=== PATIENT | female | born 1985 | race Caucasian/White ===

== ENCOUNTER 2016-10-22 18:49 | Emergency (ER) | payer BC, OTHER ==
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
[2016-10-22 19:25] VITALS: BP 153/91; PULSE 80; RESP 16
--- NOTE | 2016-10-22 19:33 | XR ---
EXAMINATION TYPE: XR cervical spine comp DATE OF EXAM: 10/22/2016 7:26 PM CLINICAL HISTORY: pain COMPARISON: NONE TECHNIQUE: Frontal, lateral, oblique, swimmers, and open mouth view of the cervical spine are obtaine d. FINDINGS: The cervical spine is visualized in its entirety from C1 thru the top of T1 level. It is s atisfactory in alignment without evidence of acute fracture or dislocation. The pre-vertebral soft t issue appears within normal limits. Disc spaces are well preserved. The C1-C2 articulation is unremar kable on the open mouth view. The oblique images are within normal limits. IMPRESSION: No acute fracture or dislocation is seen in the cervical spine.ICD 10 NO FRACTURE, INITI AL EVALUATION
== END 2016-10-22 19:49 | disposition home or self-care (01) ==
LOC: EC 18:49
DX: S16.1XXA Strain of muscle, fascia and tendon at neck level, initial encounter (principal); M25.511 Pain in right shoulder; R03.0 Elevated blood-pressure reading, without diagnosis of hypertension; V43.92XA Unspecified car occupant injured in collision with other type car in traffic accident, initial encounter; Y92.410 Unspecified street and highway as the place of occurrence of the external cause
CPT/HCPCS: 72050; 99284

== ENCOUNTER 2021-08-06 08:54 | Inpatient (IN) | payer BC ==
[2021-08-12] MEDS ORDERED: OXYTOCIN 10 UNIT/ML 1 ML VIAL IM PRN (06:01)
[2021-08-12] MEDS ORDERED: LIDOCAINE 0.5% (PF) 5 MG/ML (50 ML SDV) SQ PRN (06:01)
[2021-08-12] MEDS ORDERED: CARBOPROST TROMETHAMINE 250 MCG/ML 1 ML AMP IM PRN (06:01)
[2021-08-12] MEDS ORDERED: METHYLERGONOVINE 0.2 MG/ML 1 ML AMP IM PRN (06:01)
[2021-08-12] MEDS ORDERED: TERBUTALINE 1 MG/ML VIAL SQ PRN (06:01)
[2021-08-12 06:09] LABS: Basophils % (A) 0 %; Eosinophils # (A) 0.2 k/uL (0-0.7); Eosinophils % (A) 2 %; HCT 38.4 % (34.0-46.0); HGB 12.7 gm/dL (11.4-16.0); Lymphocytes # (A) 1.7 k/uL (1.0-4.8); Lymphocytes % (A) 12 %; MCH 29.9 pg (25.0-35.0); MCV 90.4 fL (80.0-100.0); Mean Platelet Volume 8.3; Monocytes # (A) 0.7 k/uL (0-1.0); Monocytes % (A) 5 %; Neutrophils # (A) 10.5 k/uL (1.3-7.7); Neutrophils % (A) 79 %; Platelet Count 255 k/uL (150-450); RBC 4.25 m/uL (3.80-5.40); RDW 13.4 % (11.5-15.5); WBC 13.4 k/uL (3.8-10.6)
[2021-08-12] MEDS ORDERED: OXYTOCIN 30 UNITS/500 ML NS 30 UNIT in SALINE 1 500ML.BAG IV SCH ×2 (06:15→15:30)
[2021-08-12] MEDS: LACTATED RINGERS 1,000 ML IV SCH ×5 (06:43→20:00)
--- NOTE | 2021-08-12 08:09 | P.HPOB ---
History of Present Illness H&P Date: 08/12/21 Chief Complaint: spontaneous rupture at 40-6/7 weeks' this is a 36 year old 1 para 0 woman with an estimated due date of 08/06/2021 based on LMP consistent with first trimester ultrasound. She presents with spontaneous rupture of membranes at approximately 3 AM on 10/12/2020 at 40-6/7 weeks' gestation. She was a scheduled postdates induction for later in the day. Her has been on unremarkable. Recently and specifically she denies vaginal bleeding severe abdominal pain, headaches, visual changes, lower extremity swelling. She reports good movement. Upon initial evaluation in labor and delivery triage rupture of membranes is confirmed. She is very irregularly nora. And on admission she is 1 cm dilated and 50% effaced. Per RN exam. Laboratory data: Blood type A+, antibody screen negative, rubella immune, VDRL nonreactive, hepatitis B surface antigen negative, HIV negative, gonorrhea and clinic cultures negative, glucose tolerance testing within normal limits, group B strep negative. Review of Systems All systems: negative Past Medical History Past Medical History: No Reported History History of Any Multi-Drug Resistant Organisms: None Reported Past Surgical History: Orthopedic Surgery Past Psychological History: No Psychological Hx Reported Smoking Status: Never smoker Past Alcohol Use History: None Reported Past Drug Use History: None Reported Medications and Allergies Home Medications Medication Instructions Recorded Confirmed Type Pnv,Calcium 72/Iron/Folic Acid 1 tab PO DAILY 08/12/21 08/12/21 History [ Plus Tablet] Allergies Allergy/AdvReac Type Severity Reaction Status Date / Time No Known Allergies Allergy Verified 10/22/16 19:06 Exam Vital Signs Temp Pulse Resp BP 08/12/21 06:01 97.9 F 90 18 143/97 Intake and Output 08/11/21 08/12/21 08/12/21 22:59 06:59 14:59 Other: Weight 236 kg targeted physical exam is performed: Patient is a pleasant, comfortable appearing and visibly gravid female. The abdomen is gravid, soft and nontender with a fundal height of 40 cm. Estimated weight approximately 8 pounds. On pelvic exam the cervix is 2 cm dilated, 80% effaced and the vertex in the -3 station. scalp electrode is placed to assist with external monitoring. heart tones are currently category 1. She is very irregularly nora on Pitocin. Results Result Diagrams: 08/12/21 06:01 Abnormal Lab Results - Last 24 Hours (Table) 08/12/21 Range/Units 06:01 WBC 13.4 H (3.8-10.6) k/uL Neutrophils # 10.5 H (1.3-7.7) k/uL Assessment and Plan (1) Post-dates Current Visit: Yes Status: Acute Code(s): O48.0 - POST-TERM SNOMED Code(s): 76221333 (2) Spontaneous rupture of membranes Current Visit: Yes Status: Acute Code(s): JUC9421 - SNOMED Code(s): 203474783 Plan: 36-year-old 1 admitted at 40-6/7 weeks' gestation with spontaneous rupture of membranes, not in active labor. Pitocin induction of labor has been initiated. She is group B strep negative and Rh+. Pitocin per protocol. She may have an epidural anesthetic or analgesia upon request in active labor.
[2021-08-12] MEDS ORDERED: fentaNYL (PF) 50 MCG/ML 5 ML AMP ONE (10:27)
[2021-08-12] MEDS ORDERED: SODIUM CHLORIDE 0.9% 100 ML BAG ONE (10:27)
[2021-08-12] MEDS ORDERED: ROPIVACAINE 5MG/ML 20ML VIAL ONE (10:27)
[2021-08-12] MEDS ORDERED: CITRIC ACID-SODIUM CITRATE 15 ML CUP PO ONE (14:04)
[2021-08-12] MEDS ORDERED: OXYTOCIN 30 UNITS/500 ML NS BAG IV ONE (14:32)
[2021-08-12] MEDS ORDERED: KETOROLAC 15 MG/ML 1 ML VIAL ONE (14:32)
[2021-08-12] MEDS ORDERED: MORPHINE SULFATE (PF) 0.3 MG/0.3 ML SYR ONE (14:32)
[2021-08-12] MEDS ORDERED: fentaNYL (PF) 50 MCG/ML 2 ML AMP ONE (14:32)
[2021-08-12] MEDS ORDERED: ONDANSETRON 4 MG/2 ML VIAL ONE (14:32)
[2021-08-12] MEDS ORDERED: METOCLOPRAMIDE 5 MG/ML 2 ML VIAL IVP PRN (15:25)
[2021-08-12] MEDS ORDERED: ZOLPIDEM 5 MG TAB PO PRN (15:25)
[2021-08-12] MEDS ORDERED: ONDANSETRON 4 MG/2 ML VIAL IVP PRN (15:25)
[2021-08-12] MEDS ORDERED: SIMETHICONE 80 MG CHEWABLE PO PRN (15:25)
[2021-08-12] MEDS ORDERED: diphenhydrAMINE 50 MG/ML 1 ML VIAL IVP PRN ×2 (15:25)
[2021-08-12] MEDS ORDERED: NALOXONE 0.4 MG/ML 1 ML VIAL IV PRN (15:25)
[2021-08-12] MEDS ORDERED: HYDROmorphone 1 MG/ML 1 ML SYRINGE IVP PRN (15:25)
[2021-08-12] MEDS ORDERED: diphenhydrAMINE 25 MG CAP PO PRN (15:25)
[2021-08-12] MEDS ORDERED: diphenhydrAMINE 50 MG CAP PO PRN (15:25)
--- NOTE | 2021-08-12 15:25 | P.OP ---
Date of Procedure: 08/12/21 Preoperative Diagnosis: postdates Nonreassuring status Arrest of dilation Postoperative Diagnosis: postdates Nonreassuring status Arrestive dilation Nuchal cord 1 Procedure(s) Performed: primary low transverse section Anesthesia: epidural Surgeon: Corrie Mitchell Estimated Blood Loss (ml): 520 IV fluids (ml): 1,000 Urine output (ml): 200 Pathology: other (placenta) Condition: stable Disposition: floor Indications for Procedure: this is a 36-year-old 1 para 0 woman who presented with spontaneous rupture of membranes not in active labor at 40-6/7 weeks' gestation. She is a planned induction of labor for today. Following admission on the she was started on Pitocin augmentation. She did have an epidural anesthetic placed when she is approximately 3 cm dilated. This did precipitate a bradycardic event that was resolved with blood pressure treatment, maternal position changes then maternal O2. Her Pitocin was held for a period of time. heart tones became more reassuring and Pitocin was restarted however she had episodes of intermittent late appearing heart rate decelerations precluding ongoing use of Pitocin. Her cervix remained the 3-1/2 cm dilated for several hours at which time she had another prolonged deceleration to the 70 bpm this again on resolved with maternal position changes. Overall she had excellent variability of heart rate but in the setting of ongoing episodes of late appearing heart rate decelerations and 2 episodes of prolonged bradycardic events she was counseled regarding options and primary low transverse section was recommended. The risks of the procedure including bleeding, transfusion, infection, maternal or injury were reviewed with the patient and her family members. All questions were answered and consent was obtained. The anesthesia team was notified as well as the strap sewer. Operative Findings: Pale male infant in the vertex occiput anterior position with nuchal cord 1. Apgars of 6 at 1 minute and 7 at 5 minutes. Weight 7 lbs. 12 oz. 3510 g. Intact, three-vessel cord placenta with calcifications. Normal-appearing uterus, bilateral fallopian tubes and ovaries. Description of Procedure: after consent was obtained the patient was transported to the operating room. Her epidural anesthetic was bolused per protocol. Appropriate timeout procedure was undertaken. The patient was positioned, prepped and draped in the dorsal supine position with a leftward tilt and a Westbrook catheter in place. Anesthetic was confirmed adequate. A low transverse skin incision was made and carried down to the underlying fascia sharply and with the electrocautery. Fascia was incised in the midline and extended bilaterally with the Beltrán scissors. The inferior aspect and superior aspect of the fascial incisions were elevated and the underlying rectus muscles dissected off sharply. The rectus muscles were bluntly in the midline and the peritoneum was identified. This was tented up and entered sharply. Peritoneal incision was extended inferiorly and superiorly with excellent visualization the bladder. Bladder blade was placed. A low transverse uterine incision was made and carried down to the underlying amniotic membranes sharply. Small amount of clear fluid was noted. Uterine incision was extended bilaterally bluntly. The infant's head was elevated out of the pelvis and a nuchal cord 1 was reduced. The rest the infant was delivered onto the field. The did appear quite pale. The nose and mouth were bulb suctioned and the cord was clamped and cut. Infant was taken to the warmer for further assessment. An intact, three-vessel cord placenta was manually removed and was noted to be calcified in appearance. The uterus was then exteriorized and cleared of all clot and debris. Uterine incision was delineated with Haas clamps and closed in a running locked fashion with 0 Vicryl suture followed by second imbricating layer of the same. 2 additional [id number] sutures were placed along the incision for hemostasis which was then achieved. The uterus was returned to the abdomen and the gutters were cleared of all clot and debris. Uterine incision was reinspected and noted to be hemostatic. Fascial edges, peritoneal edges and rectus muscles were inspected and noted to be hemostatic. The peritoneum was reapproximated in the midline. The fascia was then closed in a running fashion with 0 Vicryl suture. The subcuticular tissue was copiously irrigated and reapproximated with 3-0 chromic. The skin was then closed in a running fashion with the 4-0 Vicryl suture. All counts reported to me as correct by the operating room staff. The patient received antibiotics and Pitocin. She was transported to the recovery room in good condition.
[2021-08-12] MEDS: ACETAMINOPHEN TAB 500 MG TAB PO SCH (18:28)
[2021-08-12] MEDS: SENNOSIDES-DOCUSATE SODIUM 1 EACH TAB PO SCH (19:43)
[2021-08-12] MEDS: KETOROLAC 15 MG/ML 1 ML VIAL IVP SCH (23:40)
[2021-08-13] MEDS: IBUPROFEN 600 MG TAB PO SCH ×5 (02:39→19:23)
[2021-08-13] MEDS: ACETAMINOPHEN TAB 500 MG TAB PO SCH ×5 (04:16→22:49)
[2021-08-13] MEDS: KETOROLAC 15 MG/ML 1 ML VIAL IVP SCH ×2 (06:45→13:07)
[2021-08-13 07:26] LABS: Basophils % (A) 0 %; Eosinophils # (A) 0.1 k/uL (0-0.7); Eosinophils % (A) 1 %; HCT 36.7 % (34.0-46.0); HGB 11.8 gm/dL (11.4-16.0); Lymphocytes # (A) 1.4 k/uL (1.0-4.8); Lymphocytes % (A) 8 %; MCHC 32.2 g/dL (31.0-37.0); MCV 93.2 fL (80.0-100.0); Mean Platelet Volume 8.3; Monocytes # (A) 0.6 k/uL (0-1.0); Monocytes % (A) 4 %; Neutrophils % (A) 86 %; Platelet Count 244 k/uL (150-450); RBC 3.94 m/uL (3.80-5.40); RDW 13.6 % (11.5-15.5); WBC 16.4 k/uL (3.8-10.6)
--- NOTE | 2021-08-13 07:54 | P.PN ---
Progress Note - Text 08/13/21 712am 36-year-old female status post with labile epidural. Patient was dosed with 3 mg of Duramorph after the procedure, patient seen and evaluated this morning VAS of 2 through the night with no complains of nausea vomiting or pruritus. Patient does have pain this morning and will require oral medication
[2021-08-13] MEDS: SENNOSIDES-DOCUSATE SODIUM 1 EACH TAB PO SCH ×2 (08:07→19:34)
[2021-08-13] MEDS: LACTATED RINGERS 1,000 ML IV SCH (08:07)
--- NOTE | 2021-08-13 09:10 | P.PNOBGPC ---
Subjective - Subjective Principal diagnosis: Dates Interval history: Some increase in pain this morning, improving with Toradol. Minimal appetite. Patient reports: Reports voiding normally, Reports pain well controlled, Reports appetite poor, Reports ambulating normally, Denies appetite normal, Denies dizzy ambulation, Denies nauseated : doing well (Special care nursery) Objective - Vital Signs Latest vital signs: Vital Signs Temp Pulse Resp BP Pulse Ox 08/13/21 08:00 98.5 F 85 16 129/81 98 08/13/21 04:00 97.9 F 86 19 117/79 98 08/13/21 00:00 98.5 F 91 17 130/81 97 08/12/21 19:47 81 14 128/84 96 08/12/21 17:18 96.5 F L 93 16 136/72 100 08/12/21 16:48 83 16 137/74 100 08/12/21 16:18 96.5 F L 81 16 133/97 99 08/12/21 16:03 72 15 132/62 99 08/12/21 15:48 87 16 127/66 98 08/12/21 15:33 87 16 121/59 100 08/12/21 15:18 96.6 F L 94 15 99/55 97 Intake and Output 08/12/21 08/13/21 08/13/21 22:59 06:59 14:59 Output Total 800 Balance -800 Output: Urine 800 Other: Voiding Method Indwelling Catheter - Exam Extremities: Present: normal, edema. Absent: tenderness Abdomen: Present: normal appearance, soft. Absent: distention, tenderness Incision: Present: normal, dry, intact, dressed Uterus: Present: normal, firm. Absent: tenderness - Labs Labs: Abnormal Lab Results - Last 24 Hours (Table) 08/13/21 Range/Units 06:44 WBC 16.4 H (3.8-10.6) k/uL Neutrophils # 14.0 H (1.3-7.7) k/uL Assessment and Plan (1) Post-dates Current Visit: Yes Status: Acute Code(s): O48.0 - POST-TERM SNOMED Code(s): 66306458 (2) Spontaneous rupture of membranes Current Visit: Yes Status: Acute Code(s): [id number] - SNOMED Code(s): 445143369 (3) Non-reassuring heart rate or rhythm affecting management of fetus Current Visit: Yes Status: Acute Code(s): TWD6286 - SNOMED Code(s): 512677753 (4) Failure to progress in first stage of labor Current Visit: Yes Status: Acute Code(s): ZRL2093 - SNOMED Code(s): 626869833 (5) Nuchal cord Current Visit: Yes Status: Acute Code(s): O69.81X0 - LABOR AND DEL COMP BY C ORD AROUND NECK, W/O COMPRSN, UNSP SNOMED Code(s): 163379340 Plan: Postop day 1 status post primary low transverse section secondary to arrest of descent and dilatation and nonreassuring heart tones. She is recovering well. Events of labor and delivery were reviewed again with the patient in detail and all questions were answered. is currently in the special care nursery being monitored for bradycardic events. Maternal plan is to advance diet and encourage ambulation.
[2021-08-14] MEDS: IBUPROFEN 600 MG TAB PO SCH ×4 (01:53→18:42)
[2021-08-14] MEDS: ACETAMINOPHEN TAB 500 MG TAB PO SCH ×4 (04:54→22:07)
[2021-08-14] MEDS: SENNOSIDES-DOCUSATE SODIUM 1 EACH TAB PO SCH ×2 (07:43→22:07)
--- NOTE | 2021-08-14 08:39 | P.PNOBGPC ---
Subjective - Subjective Principal diagnosis: Postdates Interval history: Izabella is feeling very anxious and upset as the remains in special care nursery with the antibiotic therapy. Per RN phone call this morning she had 2 elevated blood pressures in the 160s over 90s. She previously noted issues with hypertension. She denies headaches, visual changes, abdominal pain or increase in swelling. Her pain is well-controlled with oral pain medications. Patient reports: Reports appetite normal, Reports voiding normally, Reports pain well controlled, Reports ambulating normally [place]: doing well ([facility]'ll care nursery) Objective - Vital Signs Latest vital signs: Vital Signs Temp Pulse Resp BP Pulse Ox 08/14/21 00:00 98.4 F 80 18 133/83 96 08/13/21 16:00 98.5 F 114 H 16 134/91 100 08/13/21 11:58 98.9 F 106 H 16 134/83 96 - Exam Extremities: Present: normal, edema Abdomen: Present: normal appearance, soft. Absent: distention, tenderness Incision: Present: normal, dry, intact. Absent: erythematous Uterus: Present: normal, firm. Absent: tenderness Assessment and Plan (1) Post-dates Current Visit: Yes Status: Acute Code(s): O48.0 - POST-TERM SNOMED Code(s): 83656761 (2) Spontaneous rupture of membranes Current Visit: Yes Status: Acute Code(s): WWP4667 - SNOMED Code(s): 516770920 (3) Non-reassuring heart rate or rhythm affecting management of fetus Current Visit: Yes Status: Acute Code(s): ASP9333 - SNOMED Code(s): 182302561 (4) Failure to progress in first stage of labor Current Visit: Yes Status: Acute Code(s): KPP2661 - SNOMED Code(s): 142690631 (5) Nuchal cord Current Visit: Yes Status: Acute Code(s): O69.81X0 - LABOR AND DEL COMP BY CORD AROUND NECK, W/O COMPRSN, UNSP SNOMED Code(s): 211084121 Plan: Postop day 2 status post primary low transverse section for postdates with arrest of descent and dilatation and nonreassuring heart tones. remains in special care nursery with antibiotic therapy and unexplained bradycardic events. The 's blood cultures are no growth 24 hours. I offered reassurance and discussion with Georgette about the current situation. She may benefit from a low dose of labetalol to lower blood pressures and this may improve her anxiety somewhat as well.
[2021-08-14] MEDS: LABETALOL 100 MG TAB PO PRN (16:07)
[2021-08-15] MEDS: IBUPROFEN 600 MG TAB PO SCH ×4 (00:58→19:33)
[2021-08-15] MEDS: ACETAMINOPHEN TAB 500 MG TAB PO SCH ×3 (04:13→21:58)
[2021-08-15] MEDS: SENNOSIDES-DOCUSATE SODIUM 1 EACH TAB PO SCH ×2 (08:22→19:33)
--- NOTE | 2021-08-15 23:34 | P.PNOBGPC ---
Subjective - Subjective Principal diagnosis: Post dates Interval history: Late entry from 8:30 AM. Patient received labetalol 2 for blood pressures of 160s over 90s. Otherwise asymptomatic. Infant remains in special care nursery with episodes of bradycardia. She is anxious and upset about this. Patient reports: Reports appetite normal, Reports voiding normally, Reports pain well controlled, Reports ambulating normally : doing well (In special care nursery pending cardiac evaluation) Objective - Vital Signs Latest vital signs: Vital Signs Temp Pulse Resp BP Pulse Ox 08/15/21 16:00 98.3 F 87 17 136/88 08/15/21 08:00 98.1 F 83 17 134/74 08/15/21 00:00 98.4 F 87 16 134/83 97 - Exam Extremities: Present: normal, edema Abdomen: Present: normal appearance, soft. Absent: distention, tenderness Incision: Present: normal, dry, intact. Absent: erythematous Uterus: Present: normal, firm Assessment and Plan (1) Post-dates Current Visit: Yes Status: Acute Code(s): O48.0 - POST-TERM SNOMED Code(s): 30630562 (2) Spontaneous rupture of membranes Current Visit: Yes Status: Acute Code(s): LGW5654 - SNOMED Code(s): 807006041 (3) Non-reassuring heart rate or rhythm affecting management of fetus Current Visit: Yes Status: Acute Code(s): ZAC7902 - SNOMED Code(s): 973296711 (4) Failure to progress in first stage of labor Current Visit: Yes Status: Acute Code(s): KLJ5170 - SNOMED Code(s): 329380431 (5) Nuchal cord Current Visit: Yes Status: Acute Code(s): O69.81X0 - LABOR AND DEL COMP BY CORD AROUND NECK, W/O COMPRSN, UNSP SNOMED Code(s): 017362257 Plan: Postop day 2 status post primary low transverse section for postdates with arrest of descent and dilatation and nonreassuring heart tones. remains in special care nursery with antibiotic therapy and unexplained bradycardic events. The 's blood cultures are no growth 24 hours. I offered reassurance and discussion with Georgette about the current situation. She may benefit from a low dose of labetalol to lower blood pressures and this may improve her anxiety somewhat as well. Postop day 3 status post primary low transverse section for arrest of descent and dilatation and nonreassuring heart tones. Blood pressures have on mainly been in the 130s over 80s. If remains in the special care nursery with unexplained bradycardic episodes. Evaluation is ongoing. Maternal routine care., Anticipate discharge home tomorrow.
[2021-08-16] MEDS: ACETAMINOPHEN TAB 500 MG TAB PO SCH ×3 (00:52→12:54)
[2021-08-16] MEDS: IBUPROFEN 600 MG TAB PO SCH ×2 (07:10→12:53)
[2021-08-16] MEDS: SENNOSIDES-DOCUSATE SODIUM 1 EACH TAB PO SCH (08:29)
[2021-08-16] MEDS: LABETALOL 100 MG TAB PO PRN ×2 (09:00→16:38)
--- NOTE | 2021-08-16 09:58 | P.DS ---
Providers Date of admission: 08/12/21 05:39 Expected date of discharge: 08/16/21 Attending physician: Corrie Mitchell Primary care physician: Zoe Rodriguez - Discharge Diagnosis(es) (1) Post-dates Current Visit: Yes Status: Acute (2) Spontaneous rupture of membranes Current Visit: Yes Status: Acute (3) Non-reassuring heart rate or rhythm affecting management of fetus Current Visit: Yes Status: Acute (4) Failure to progress in first stage of labor Current Visit: Yes Status: Acute (5) Nuchal cord Current Visit: Yes Status: Acute (6) S/P section Current Visit: Yes Status: Acute Hospital Course: this is a 36-year-old 1 now para 1 woman who is admitted at 40-6/7 weeks' gestation with spontaneous rupture of membranes not in labor. She was planned for induction of labor later the day of admission. Following admission she underwent a Pitocin induction of labor. Her cervix initially was approximately 2 cm dilated. Clear fluid was noted. She did progress to appro ximately 6 cm dilated after many hours however she began having a nonreassuring heart tones. She remained 6 cm for several hours on and the decision was made based on concerns for status as well as arrest of descent and dilatation to proceed with primary low transverse section. The patient went to the operating room where she underwent an uncomplicated low transverse section. Findings at the time of surgery were significant formale in the vertex presentation with nuchal cord 1. Apgars were 6 at 1 minute and 7 at 5 minutes. The baby was notably pale. Weight was 7 lbs. 12 oz., 3510 g. Please see the operative report for operative details. The was admitted to special care nursery for tachypnea and episodes of unprovoked bradycardia. The patient's postoperative course was essentially unremarkable. By the morning of postoperative day #1 she was able to ambulate and void with a [place] catheter removed. Her pain medications were transitioned to oral medications. She did develop some moderately elevated blood pressures the evening of postoperative day #1 into the 160s over 90s. On postoperative day #2 she was started on labetalol 100 mg twice a day. She is otherwise completely asymptomatic and her labs were within normal limits. On postoperative day #3 her blood pressures remained mainly in the 130s over 80s with occasional blood pressures of 160s over 90s or managed with when necessary labetalol. On postoperative day #4 she continued to recover well. Her incision was well healing and she had minimal lochia. She is using the breast pump and nursing successfully with the still in the special care nursery. She will be sent home on labetalol 100 mg twice a day as she does tend to have more elevated blood pressures in the mornings and evenings with normalization throughout the day. Signs and symptoms of hypertension reviewed with the patient prior to discharge. Procedures: primary low transverse section Patient Condition at Discharge: Good Plan - Discharge Summary New Discharge Prescriptions: New Ibuprofen [Motrin] 600 mg PO Q6H #30 tab Acetaminophen Tab [Tylenol] 1,000 mg PO Q6H tab Labetalol [Trandate] 100 mg PO BID #30 tab No Action Pnv,Calcium 72/Iron/Folic Acid [ Plus Tablet] 1 tab PO DAILY Discharge Medication List Pnv,Calcium 72/Iron/Folic Acid [ Plus Tablet] 1 tab PO DAILY 08/12/21 [History] Acetaminophen Tab [Tylenol] 1,000 mg PO Q6H tab 08/16/21 [Rx] Ibuprofen [Motrin] 600 mg PO Q6H #30 tab 08/16/21 [Rx] Labetalol [Trandate] 100 mg PO BID #30 tab 08/16/21 [Rx] Follow up Appointment(s)/Referral(s): Corrie Mitchell MD [STAFF PHYSICIAN] - 1 Week Activity/Diet/Wound Care/Special Instructions: Follow-up in 2 weeks after surgery in the office. Call the office with any concerning signs or symptoms including fever greater than 101, severe abdominal pain, heavy vaginal bleeding, signs of wound infection, increased swelling or redness of the lower extremities, signs of depression. No driving for 2 weeks after surgery. No heavy lifting or vigorous activity until reevaluated in the office. No intercourse for 6 weeks after delivery. Discharge Disposition: HOME SELF-CARE
[2021-08-16 15:01] VITALS: BP 165/93; PULSE 71; RESP 16; TEMP 98.1
== END 2021-08-16 18:50 | disposition home or self-care (01) | DRG 788 ==
LOC: 4FBP 08-12 05:39
PROVIDERS: ADMIT Obstetrics & Gynecology; ATTEND Obstetrics & Gynecology
PROC: 10D00Z1 Extraction of Products of Conception, Low, Open Approach (ICD-10-PCS; principal; 2021-08-12 14:41)
DX: O48.0 Post-term pregnancy (principal); O76 Abnormality in fetal heart rate and rhythm complicating labor and delivery; O62.0 Primary inadequate contractions; O69.81X0 Labor and delivery complicated by cord around neck, without compression, not applicable or unspecified; Z37.0 Single live birth; Z3A.40 40 weeks gestation of pregnancy; O16.4 Unspecified maternal hypertension, complicating childbirth
CPT/HCPCS: 85025; 86850; 86900; 86901; 88307